=== PATIENT | female | born 1950 | race Caucasian/White ===

== ENCOUNTER 2021-06-25 20:39 | Emergency (ER) | payer BC ==
[2021-06-25] MEDS ORDERED: Ondansetron PF 4 MG/2 ML Vial ONE (22:49)
[2021-06-25 23:17] LABS: Band 4 % (5-11); Eosinophils 1 % (0-10); Hemoglobin 14.9 g/dL (12.0-16.0); Lymphocytes 13 % (21-51); MDiff Complete? YES; Mean Corpuscular HGB CONC 31.7 g/dL (32.0-36.0); Mean Corpuscular Hemoglobin 29.9 pg (27.0-31.0); Mean Corpuscular Volume 94.3 fL (78.0-98.0); Mean Platelet Volume 6.5 fL (7.4-10.4); Monocytes 2 % (0-10); Neutrophil 80 % (42-75); Platelet Count 222 thou/uL (130-400); RBC Distribution Width 11.6 % (11.5-14.5); Red Blood Cell (RBC) Count 4.99 mill/uL (4.20-5.40); White Blood Cell (WBC) Count 3.3 thou/uL (4.8-10.8)
[2021-06-25 23:23] LABS: ALT (SGPT) 77 U/L (8-55); AST (SGOT) 164 U/L (5-34); Albumin 3.7 g/dL (3.4-4.8); Alkaline Phosphatase 119 U/L (40-110); Anion Gap 21 mmol/L (10-20); BUN (Urea Nitrogen) 24 mg/dL (9.8-20.1); Bilirubin, Total 0.9 mg/dL (0.2-1.2); Calc. Creatinine Clearance 0 mL/min (70-130); Calcium 9.6 mg/dL (7.8-10.44); Carbon Dioxide 19 mmol/L (23-31); Chloride 106 mmol/L (98-107); Globulin 2.3 g/dL (2.4-3.5); Glucose 135 mg/dL (80-115); Lipase 22 U/L (8-78); Sodium 143 mmol/L (136-145)
[2021-06-25 23:30] LABS: Potassium 2.7 mmol/L (3.5-5.1)
[2021-06-25] MEDS ORDERED: Potassium Chloride 20 MEQ TAB ONE (23:54)
[2021-06-25] MEDS ORDERED: NS 0.9% w/ 40 MEQ KCL 1,000 ML IV ONE (23:54)
[2021-06-26 00:02] LABS: Magnesium 1.4 mg/dL (1.6-2.6)
[2021-06-26] MEDS ORDERED: Cefepime 1 GM VIAL ONE ×2 (00:16→09:04)
[2021-06-26] MEDS ORDERED: Promethazine HCl 25 MG/ML VIAL ONE (01:44)
[2021-06-26 03:49] LABS: Bilirubin Large (Negative); Blood, Urine Large (Negative); Clarity Turbid (Clear); Glucose, Urine (Dipstick) 250 mg/dL (Negative); Ketone, Urine 40 mg/dL (Negative); Leukocyte Large (Negative); Nitrite Positive (Negative); Protein, Urine (Dipstick) > or equal to 300 mg/dL (Neg-Trace); RBC/HPF Greater than 50 HPF (0-3); Specific Gravity, Urine 1.022 (1.002-1.036); Squamous Epithelial 0-3 HPF (0-3); Urobilinogen > or = 8.0 mg/dL (Less than 2); pH, Urine 8.5 (5.0-9.0)
[2021-06-26] MEDS ORDERED: Magnesium Oxide 400 MG TAB ONE (03:56)
[2021-06-26] MEDS ORDERED: Acetaminophen 500 MG TAB ONE (04:53)
[2021-06-26 05:17] LABS: SARS-CoV-2 NAA Rapid Test DETECTED (NotDetected)
[2021-06-26] MEDS ORDERED: Sodium Chloride 0.9% 100 ML ONE (09:04)
[2021-06-26] MEDS ORDERED: Norepinephrine 4 MG/4 ML VIAL ONE (09:42)
[2021-06-26 09:57] LABS: Base Excess-Venous -6.3 mmol/L (-2.0 to 3.0); Bicarbonate (HCO3v) 18.6 mmol/L (22.0-28.0); CO2 Tension (PvCO2) 34.4 mmHg (42.0-51.0); Calcium, Ionized 1.09 mmol/L (1.15-1.33); Chloride 113 mmol/L (98-107); Potassium 4.6 mmol/L (3.5-5.1); Sodium 142 mmol/L (138-145); T. Carbon Dioxide 19.7 mmol/L (22.0-28.0); vO2 Saturation-calc 97.6 % (60.0-85.0)
[2021-06-26 09:59] LABS: Red Blood Cell (RBC) Count 3.29 mill/uL (4.20-5.40)
[2021-06-26 10:00] LABS: Anion Gap 16 mmol/L (10-20); Manual Diff?? YES; Mean Corpuscular HGB CONC 41.7 g/dL (32.0-36.0); Mean Corpuscular Hemoglobin 39.5 pg (27.0-31.0); Mean Corpuscular Volume 94.8 fL (78.0-98.0); Mean Platelet Volume 7.3 fL (7.4-10.4); Platelet Count 162 thou/uL (130-400); RBC Distribution Width 13.3 % (11.5-14.5)
[2021-06-26 10:07] LABS: Band 37 % (5-11); MDiff Complete? YES; Neutrophil 59 % (42-75)
[2021-06-26 10:08] LABS: Anisocytosis SLIGHT = 6-15 cells (100X) (0-5/hpf); Lymphocytes 2 % (21-51); Monocytes 2 % (0-10); Platelet Morphology Comment Appears Adequate
[2021-06-26 10:18] LABS: BUN (Urea Nitrogen) 30 mg/dL (9.8-20.1); Bilirubin, Total 0.5 mg/dL (0.2-1.2); Calc. Creatinine Clearance 0 mL/min (70-130); Calcium 7.8 mg/dL (7.8-10.44); Carbon Dioxide 17 mmol/L (23-31); Chloride 113 mmol/L (98-107); Glucose 64 mg/dL (80-115); Potassium 4.5 mmol/L (3.5-5.1); Sodium 141 mmol/L (136-145)
[2021-06-26 10:19] LABS: ALT (SGPT) 84 U/L (8-55); AST (SGOT) 105 U/L (5-34); Albumin 2.8 g/dL (3.4-4.8); Alkaline Phosphatase 72 U/L (40-110); Globulin 1.4 g/dL (2.4-3.5); Protein, Total 4.2 g/dL (5.8-8.1)
[2021-06-26] MEDS ORDERED: Ondansetron PF 4 MG/2 ML Vial ONE (10:41)
== END 2021-06-26 11:30 | disposition short-term general hospital (02) ==
LOC: MADERS 20:39
DX: U07.1 COVID-19 (principal); A41.9 Sepsis, unspecified organism; N12 Tubulo-interstitial nephritis, not specified as acute or chronic
CPT/HCPCS: 0240U; 36556; 51702; 74176; 80053; 81003; 81015; 82330; 82803; 83605; 83690; 83735; 83880; 84484; 85025; 87040; 87077; 87086; 87149; 87186; 93005; 96365; 96366; 96367; 96374; 96375; J0692; J2405; J2550; J3480; J3490; U0003; U0005

== ENCOUNTER 2021-08-10 07:01 | Outpatient (CLI) | payer MEDICARE ==
[2021-08-10 19:23] LABS: SARS-CoV-2 PCR by NAA Not Detected (NotDetected)
== END 2021-08-10 07:02 | disposition home or self-care (01) ==
LOC: MADLAB 07:01
PROVIDERS: ATTEND Urology
DX: Z20.822 Contact with and (suspected) exposure to COVID-19 (principal)
CPT/HCPCS: U0003; U0005

== ENCOUNTER 2025-04-11 14:02 | Outpatient (CLI) | payer MEDICARE | END 2025-04-11 14:03 | disposition home or self-care (01) | LOC: MADRAD 14:02 | DX: R06.2 Wheezing (principal) | CPT/HCPCS: 71046 ==